=== PATIENT | male | born 1935 | race Caucasian/White ===

== ENCOUNTER 2018-06-14 08:46 | Emergency (ER) | payer OTHER ==
[~2018-06-14] VITALS: Ht 182.9 cm; Wt 71.2 kg
[2018-06-14 08:49] VITALS: BP 186/76
[2018-06-14] MEDS ORDERED: CIPRO500 MG PO (09:00)
[2018-06-14 09:31] LABS: URINE BILIRUBIN NEGATIVE (Negative); URINE BLOOD NEGATIVE (Negative); URINE CLARITY CLEAR; URINE COLOR YELLOW; URINE GLUCOSE-RANDOM* NEGATIVE (Negative); URINE KETONES NEGATIVE (Negative); URINE LEUKOCYTES-REFLEX NEGATIVE (Negative); URINE NITRITE-REFLEX NEGATIVE (Negative); URINE PROTEIN (DIPSTICK) NEGATIVE (Negative); URINE SPECIFIC GRAVITY 1.025 (1.005-1.035); URINE UROBILINOGEN 0.2 E.U./dl (0.2-1.0)
== END 2018-06-14 09:46 | disposition home or self-care (01) ==
LOC: ER 08:46
PROVIDERS: Emergency Medicine
DX: R33.9 Retention of urine, unspecified (principal)

== ENCOUNTER → 2018-06-25 | Outpatient (CLI) | payer OTHER ==
[~2018-06-25] MED LIST: CIPRO500 MG PO
== END ==
LOC: RAD 14:26
DX: Z01.818 Encounter for other preprocedural examination (principal); J98.4 Other disorders of lung; M40.12 Other secondary kyphosis, cervical region; J84.10 Pulmonary fibrosis, unspecified

== ENCOUNTER 2018-06-28 19:54 | Emergency (ER) | payer OTHER ==
[~2018-06-28] VITALS: Ht 182.9 cm; Wt 71.2 kg
[2018-06-28] MEDS ORDERED: TRAMADOL 50 MG50 MG PO (20:52)
[2018-06-28] MEDS ORDERED: PREDNISONE 20 M20 MG PO (20:52)
[2018-06-28] MEDS ORDERED: ROBAXIN500 MG PO (20:52)
[2018-06-28 21:00] VITALS: BP 134/70
== END 2018-06-28 21:08 | disposition home or self-care (01) ==
LOC: ER 19:54
DX: S39.012A Strain of muscle, fascia and tendon of lower back, initial encounter (principal); Z87.39 Personal history of other diseases of the musculoskeletal system and connective tissue; X58.XXXA Exposure to other specified factors, initial encounter; Y93.89 Activity, other specified; Y92.89 Other specified places as the place of occurrence of the external cause; Y99.8 Other external cause status

== ENCOUNTER → 2018-09-10 | Outpatient (CLI) | payer OTHER ==
[~2018-09-10] MED LIST changes: +PREDNISONE 20 M20 MG PO; +ROBAXIN500 MG PO; +TRAMADOL 50 MG50 MG PO
== END ==
LOC: RAD 11:10
DX: M79.605 Pain in left leg (principal); M25.562 Pain in left knee